=== PATIENT | male | born 1985 | race Caucasian/White ===

== ENCOUNTER 2025-07-23 04:22 | Emergency (ER) | payer OTHER ==
[2025-07-23 04:31] VITALS: BP 110/66; PULSE 87; RESP 20; TEMP 98; BMI 26.4
[2025-07-23] MEDS ORDERED: METOCLOPRAMIDE HCL INJECTION 10 MG/2 ML VIAL ONE (05:10)
[2025-07-23] MEDS ORDERED: ACETAMINOPHEN INJECTION 100 ML ONE (05:10)
[2025-07-23] MEDS: ACETAMINOPHEN 1000 MG/100 ML BAG IVPB ONE (05:18)
[2025-07-23] MEDS: METOCLOPRAMIDE HCL INJECTION 10 MG/2 ML VIAL IVPB ONE (05:18)
[2025-07-23] MEDS: SODIUM CHLORIDE 0.9% 500 ML INFUS.BAG IV ONE (05:18)
== END 2025-07-23 06:57 | disposition home or self-care (01) ==
LOC: JER 04:22
PROC: 3E033NZ Introduction of Analgesics, Hypnotics, Sedatives into Peripheral Vein, Percutaneous Approach (ICD-10-PCS; principal; 2025-07-23)
PROC: 3E033GC Introduction of Other Therapeutic Substance into Peripheral Vein, Percutaneous Approach (ICD-10-PCS; 2025-07-23)
DX: R51.9 Headache, unspecified (principal); R11.2 Nausea with vomiting, unspecified
CPT/HCPCS: 96374; 96375; 99284-25